=== PATIENT | female | born 1970 | race Caucasian/White ===

== ENCOUNTER 2017-08-24 05:24 | Inpatient (IN) | payer OTHER ==
[2017-08-24] MEDS ORDERED: LIDOCAINE 2% (SDV) 5 ML INJ (07:00)
[2017-08-24] MEDS ORDERED: CEFAZOLIN 1 GM INJ (07:12)
[2017-08-24] MEDS ORDERED: ROCURONIUM 50 MG INJ (07:12)
[2017-08-24] MEDS ORDERED: PROPOFOL 20 ML (07:12)
[2017-08-24] MEDS ORDERED: NEOSTIGMINE 3 MG/3 ML SYRINGE (07:12)
[2017-08-24] MEDS ORDERED: GLYCOPYRROLATE 0.4 MG INJ (07:12)
[2017-08-24] MEDS ORDERED: MIDAZOLAM 1 MG/ML 2 ML INJ (07:14)
[2017-08-24] MEDS ORDERED: DEXAMETHASONE 4 MG/ML 1 ML INJ (07:14)
[2017-08-24] MEDS ORDERED: ONDANSETRON 4 MG INJ (07:14)
[2017-08-24] MEDS: BUPIVACAINE 0.5%/EPI (SDV) 30 ML INJ (07:34)
[2017-08-24] MEDS: POLYMYXIN/BACITRACIN 1L IRRIG (07:35)
[2017-08-24] MEDS: CA CHLORIDE 10% 10 ML SYRINGE (07:35)
[2017-08-24] MEDS: SURGIFOAM POWDER 1 GM KIT (07:35)
[2017-08-24] MEDS: HEPARIN 1000 UNITS/ML 10 ML INJ (07:35)
[2017-08-24] MEDS: THROMBIN 5000 UNIT VIAL (07:36)
[2017-08-24] MEDS ORDERED: PHENYLephrine (100 MCG/ML) 5ML SYG (07:46)
[2017-08-24] MEDS ORDERED: MEPERIDINE 25 MG INJ IV (08:00)
[2017-08-24] MEDS ORDERED: HYDROmorphONE (0.2 MG/ML) 10ML SYG IV ×3 (08:00)
[2017-08-24] MEDS ORDERED: hydrALAzine 20 MG INJ IV (08:00)
[2017-08-24] MEDS ORDERED: ONDANSETRON 4 MG INJ IV ×2 (08:00→09:00)
[2017-08-24] MEDS ORDERED: LABETALOL HCL 20MG INJ IV (08:00)
[2017-08-24] MEDS ORDERED: FENTAnyl 50 MCG/ML VIAL IV (08:00)
[2017-08-24] MEDS ORDERED: IPRATROPIUM (NEB) 0.5 MG/2.5 ML AMP HHN (08:00)
[2017-08-24] MEDS ORDERED: MIDAZOLAM 1 MG/ML 2 ML INJ IV (08:00)
[2017-08-24] MEDS ORDERED: DIPHENHYDRAMINE 50 MG INJ IV (08:00)
[2017-08-24] MEDS ORDERED: ALBUTEROL 0.083% (NEB) 2.5 MG/3 ML AMP HHN (08:00)
[2017-08-24] MEDS ORDERED: EPHEDrine SULFATE 50 MG/5 ML SYG IV (08:00)
[2017-08-24] MEDS ORDERED: OXYCODONE/ACETAMINOPHEN (5/325) TAB PO ×2 (08:00)
[2017-08-24] MEDS ORDERED: TRIMETHOBENZAMIDE 100 MG/ML VIAL IM (08:00)
[2017-08-24] MEDS ORDERED: NALOXONE (0.4 MG/ML) INJ IV (09:00)
[2017-08-24] MEDS ORDERED: CEPASTAT LOZENGE MT (09:00)
[2017-08-24] MEDS ORDERED: HYDROCODONE/APAP (10/325) TAB PO (09:00)
[2017-08-24] MEDS ORDERED: BISACODYL 10 MG SUPP PR (09:00)
[2017-08-24] MEDS: CEFAZOLIN 1 GM/50 ML (PMX) 50 ML IVPB ×2 (09:00→16:02)
[2017-08-24] MEDS ORDERED: AL HYDROX/MG HYDROX/SIMETH 30 ML CUP PO (09:00)
[2017-08-24] MEDS: HYDROmorphONE 0.2 MG/ML PCA IV (09:29)
[2017-08-24] MEDS: FENTAnyl 50 MCG/ML VIAL IV ×3 (09:29→09:40)
[2017-08-24] MEDS: 1/2 NS + KCL 20 MEQ 1,000 ML IV ×2 (10:34→20:37)
[2017-08-24] MEDS ORDERED: BROMOCRIPTINE 2.5 MG TAB PO (14:00)
[2017-08-24] MEDS ORDERED: DEXTROSE 50% 50 ML SYRINGE IV ×2 (14:00)
[2017-08-24] MEDS ORDERED: GLUCAGON 1 MG INJ IM (14:00)
[2017-08-24] MEDS ORDERED: GLUCOSE GEL 15 GRAM TUBE PO ×2 (14:00)
[2017-08-24] MEDS ORDERED: GLUCOSE GEL 15 GRAM TUBE BUCCAL (14:00)
[2017-08-24] MEDS: metFORMIN 500 MG TAB PO (17:17)
[2017-08-24] MEDS: REPAGLINIDE 1 MG TAB PO (17:17)
[2017-08-24] MEDS: ACCU-CHEK XX ×2 (17:36→20:11)
[2017-08-24] MEDS: DOCUSATE SODIUM 100 MG CAP PO (20:36)
[2017-08-24] MEDS: ACETAMINOPHEN 325 MG TAB PO (20:36)
[2017-08-24] MEDS: LOSARTAN 50 MG TAB PO (20:37)
[2017-08-25] MEDS: CEFAZOLIN 1 GM/50 ML (PMX) 50 ML IVPB (00:35)
[2017-08-25 05:49] LABS: ADD MAN DIFF? NO
[2017-08-25 05:55] LABS: BASOPHILS % 0.2 % (0.0-2.0); EOSINOPHILS % 0.2 % (0.0-7.0); HEMATOCRIT 38.1 % (37.0-47.0); HEMOGLOBIN 12.8 g/dl (12.0-16.0); LYMPHOCYTES % 15.3 % (15.0-51.0); MEAN CORPUSCULAR HGB CONC 33.6 g/dl (32.0-37.0); MEAN CORPUSCULAR VOLUME 101.3 fl (82.0-101.0); MEAN PLATELET VOLUME 10.7 fl (7.4-10.4); MONOCYTE # 0.9 10^3/ul (0.3-0.9); MONOCYTES % 6.9 % (0.0-11.0); PLATELET COUNT 178 10^3/UL (140-415); RED BLOOD COUNT 3.76 10^6/ul (4.20-5.40); RED CELL DISTRIBUTION WIDTH 12.5 % (11.5-14.5)
[2017-08-25] MEDS: 1/2 NS + KCL 20 MEQ 1,000 ML IV ×2 (06:00→16:00)
[2017-08-25 06:18] LABS: ANION GAP 17 (8-16); BLOOD UREA NITROGEN 17 mg/dl (7-20); CALCIUM 9.3 mg/dl (8.4-10.2); CARBON DIOXIDE 25 mmol/L (21-31); CHLORIDE 103 mmol/L (97-110); CREATININE 0.73 mg/dl (0.44-1.00); GLUCOSE 126 mg/dl (70-220); MAGNESIUM 1.9 mg/dl (1.7-2.5); POTASSIUM 4.8 mmol/L (3.5-5.1); SODIUM 140 mmol/L (135-144)
[2017-08-25] MEDS: ACCU-CHEK XX ×6 (07:20→19:55)
[2017-08-25] MEDS ORDERED: BROMOCRIPTINE 2.5 MG TAB PO (09:00)
[2017-08-25] MEDS: DOCUSATE SODIUM 100 MG CAP PO ×2 (09:11→20:15)
[2017-08-25] MEDS: CYCLOBENZAPRINE 10 MG TAB PO ×2 (09:11→17:34)
[2017-08-25] MEDS: REPAGLINIDE 1 MG TAB PO ×3 (09:12→17:47)
[2017-08-25] MEDS: BROMOCRIPTINE MESYLATE 5 MG PO (09:12)
[2017-08-25] MEDS: metFORMIN 500 MG TAB PO ×2 (09:12→17:48)
[2017-08-25] MEDS: LOSARTAN 50 MG TAB PO ×2 (09:12→20:15)
[2017-08-25] MEDS: HYDROCODONE/APAP (10/325) TAB PO ×3 (10:52→19:11)
[2017-08-25] MEDS: HYDROmorphONE 0.5 MG/0.5 ML SYG IV ×3 (16:32→22:05)
[2017-08-26] MEDS: HYDROCODONE/APAP (10/325) TAB PO ×2 (06:22→13:04)
[2017-08-26] MEDS: HYDROmorphONE 0.5 MG/0.5 ML SYG IV (06:26)
[2017-08-26] MEDS: ACCU-CHEK XX ×4 (08:32→13:40)
[2017-08-26] MEDS: metFORMIN 500 MG TAB PO (08:50)
[2017-08-26] MEDS: BROMOCRIPTINE MESYLATE 5 MG PO (08:50)
[2017-08-26] MEDS: REPAGLINIDE 1 MG TAB PO ×2 (08:50→13:03)
[2017-08-26] MEDS: LOSARTAN 50 MG TAB PO (08:51)
[2017-08-26] MEDS: DOCUSATE SODIUM 100 MG CAP PO (08:51)
[2017-08-26] MEDS: KETOROLAC 30 MG INJ IV (09:30)
[2017-08-26 14:26] LABS: PROLACTIN 12.9 ng/mL
== END 2017-08-26 16:30 | disposition home or self-care (01) | DRG 517 ==
LOC: REC 05:24 → MS1 09:57
PROVIDERS: Specialist
PROC: 01NB0ZZ Release Lumbar Nerve, Open Approach (ICD-10-PCS; principal; 2017-08-24 07:00)
DX: M48.07 Spinal stenosis, lumbosacral region (principal); M54.17 Radiculopathy, lumbosacral region; E11.9 Type 2 diabetes mellitus without complications; E66.9 Obesity, unspecified; Z68.34 Body mass index [BMI] 34.0-34.9, adult; I10 Essential (primary) hypertension
CPT/HCPCS: 72020; 80048; 82962; 83735; 84146; 84703; 85025; 86999; 97110; 97116; 97162; 97530